=== PATIENT | male | born 1955 | race Caucasian/White ===

== ENCOUNTER 2024-11-29 10:03 | Emergency (ER) | payer MEDICARE, OTHER, SELFPAY ==
--- NOTE | ~2024-11-29 | US_ITS ---
CLINICAL HISTORY: pain swelling, infection vs torsion US Scrotum with Doppler Comparison: None Findings: Right testicle normal size and echotexture, 4.3 x 2.6 x 2.8 cm, corresponds to a volume of 15.9 mL. Left testicle normal size and echotexture, 4.0 x 2.3 x 2.6 cm, corresponds to a volume of 12.6 mL.. Normal color flow and arterial/venous spectral tracing of both testicles. Benign calcifications are noted within the right epididymis. Small cysts are present bilaterally. Epididymides are otherwise unremarkable. No varicoceles. No hydroceles. IMPRESSION: Normal scrotal ultrasound. No evidence of torsion. This document has been electronically signed by: Jose Carlos MD on 11/29/2024 22:48:28
--- NOTE | ~2024-11-29 | CT_ITS ---
CLINICAL HISTORY: right inguinal hernia pain CT of the abdomen and pelvis utilizing intravenous contrast. No comparison. Findings: The liver and gallbladder are unremarkable. There is no hydronephrosis. In the left kidney there is a 4.5 cm cyst with mild peripheral calcification likely incidental. The spleen and pancreas are unremarkable. No abdominal aortic aneurysm. Small hiatal hernia. No diverticulitis. Normal appendix. No bowel obstruction. There is a small fat containing umbilical hernia. There is also a small fat containing ventral hernia in the epigastrium. The bladder is unremarkable. The prostate is enlarged. There are changes of a right inguinal hernia repair. No recurrent hernia is seen. There is atelectasis or scarring in the left lung base. Impression: No inguinal hernias identified. Other findings as above. This document has been electronically signed by: Alejandro Forman MD on 11/29/2024 18:50:00
[2024-11-29 10:10] VITALS: BP 134/89; PULSE 53; RESP 20; TEMP 35.9; O2SAT 98; BMI 27.7
[2024-11-29 10:52] LABS: MANUAL DIFF FLAG NO
[2024-11-29 10:54] LABS: Basophils Absolute Auto 0.1 X10*3/uL (0.0-0.2); Basophils Percent Auto 0.8 % (0-2); Eosinophils Absolute Auto 0.2 X10*3/uL (0.0-0.4); Eosinophils Percent Auto 2.2 % (0-4); Hematocrit 46.6 % (42.0-52.0); Hemoglobin 15.6 g/dl (14.0-18.0); Imm Gran Abs Auto 0.04 X10*3/uL (0.00-0.03); Imm Gran Pct Auto 0.4 % (0.0-0.4); Lymphocytes Absolute Auto 3.6 X10*3/uL (1.2-4.9); Lymphocytes Percent Auto 35.1 % (20-40); Mean Corpuscular HGB Conc 33.5 g/dl (31.0-36.0); Mean Corpuscular Hemoglobin 31.5 pg (27.0-33.0); Mean Platelet Volume 9.3 fL (9.4-12.4); Monocytes Absolute Auto 1.1 X10*3/uL (0.1-1.2); Monocytes Percent Auto 10.4 % (2-11); Neutrophils Absolute Auto 5.3 x10*3/uL (2.0-8.3); Neutrophils Percent Auto 51.1 % (45-73); Platelet Count 254 X10*3/uL (160-400); Red Blood Count 4.96 X10*6/uL (4.60-5.80); Red Cell Distribution Width 13.2 % (11.0-16.0); White Blood Count 10.4 X10*3/uL (4.8-10.8)
[2024-11-29 11:13] LABS: Alanine Aminotransferase 32 U/L (0-40); Albumin Level 4.2 g/dL (3.5-5.0); Alkaline Phosphatase 62 U/L (39-117); Anion Gap 10 (12-20); Aspartate Amino Transferase 26 U/L (5-37); Bilirubin Direct 0.3 mg/dL (0.0-0.5); Bilirubin Total 0.8 mg/dL (0.0-1.0); Blood Urea Nitrogen 15 mg/dL (9-16); Calcium 9.2 mg/dL (8.4-10.2); Carbon Dioxide 25 mmol/L (22-29); Chloride 104 mmol/L (96-108); Creatinine Clr Calc Pharmacy 71.1; Estimated Glomerular Filt Rate > 60; Glucose Random 157 mg/dL (60-115); Lipase 18 U/L (8-78); Potassium 4.6 mmol/L (3.3-5.1); Sodium 134 mmol/L (135-145); Total Protein 7.6 g/dL (6.5-8.0)
--- OUTSIDE RECORDS SUMMARY | 2024-11-29 11:56 | XMS_ITS | Clinical Summary ---
Author Organization [facility] Address [address] [place] [address] Care Team Providers Care Senior Integration Developer Name Role Phone Harpreet Fam Primary Care Provider [phone] Allergies Active Allergy Reactions Criticality Noted Date Comments Penicillins Urticarial Rash 03/02/2008 Medications No known medications Active Problems No known active problems Social History Tobacco Use Types Packs/Day Years Used Date Smoking Tobacco: Passive Smo ke Exposure - Never Smoker Smokeless Tobacco: Never Alcohol Use Standard Drinks/Week Comments Not Asked 0 (1 standard drink = 0.6 oz pur e alcohol) Sex and Gender Information Value Date Recorded Sex Assigned at Not on file Legal Sex Male 5:45 PM EDT Gender Identity Not on file Sexual Orientation Not on file Plan of Treatment Health Maintenance Due Date Last Done Comments Hepatitis C Screening 1955 DTaP/Tdap/Td (1 - Tdap) 1973 Pneumococcal 50+ years (1 of 1 - PCV) 2005 Zoster (Shingrix) (1 of 2) 2005 COVID-19 Vaccine ( - 2023-2 5 season) 2024 Influenza (#1) 2024 RSV (1 - 1-dose 75+ series) 2030 Abdominal Aorta Imaging Discontinued HPV Vaccine Aged Out No longer eligi ble based on patient's age to complete this topic Hep A Aged Out No longer eligi ble based on patient's age to complete this topic Hep B Aged Out No longer eligi ble based on patient's age to complete this topic Hib Aged Out No longer eligi ble based on patient's age to complete this topic Meningococcal ACWY Aged Out No longer eligible based on patient's age to complete this topic Zoster (Zostavax) Discontinued Insurance [employer] [facility] FFS DIRECT CARE (HMO) Care Teams Senior Integration Developer Relationship Specialty Start Date End Date Harpreet Fam [facility] [address] [place] [id number] PCP - General 10/04/07
--- OUTSIDE RECORDS SUMMARY | 2024-11-29 11:56 | XMS_ITS | Encounter Summary ---
Author Organization [facility] Address [address] [place] [address] Care Team Providers Care Air Support Control Officer Name Role Phone Linden Mejia MD Primary Care Provider [phone] Encounter Details Date Type Department Care Team (Late st Contact Info) Description 11/28/2024 Nurse Triage Adult Medicine [address] [phone] Leela Andujar, RN Social History Tobacco Use Types Packs/Day Years Used Date Smoking Tobacco: Never Smokeless Tobacco: Never Alcohol Use Standard Drinks/Week Comments Yes 0 (1 standard drink = 0.6 oz pur e alcohol) Sex and Gender Information Value Date Recorded Sex Assigned at Not on file Gender Identity Not on file Sexual Orientation Not on file documented as of this encounter Progress Notes * Leela Andujar RN - 11/28/2024 11:10 AM EST He was instructed to go to the ER for further evaluation and treatment. He is in agreement with this plan and states he will go to [facility] ER. Reason for Disposition Swollen scrotum or visible bruising of scrotum Answer Assessment - Initial Assessment Questions 1. MECHANISM: How did the injury happen? (Injuries to the penis can occur during sexual intercourse or masturbation; the caller may not be willing to mention this) Pt is reporting swelling to the right side of his scrotum this weekend when moving a 3 ton jonny from his car to the garage. 2. ONSET: When did the injury happen? (e.g., minutes, hours ago) 11/25/24 3. LOCATION: What part of the genitals are injured? Right scrotal swelling 4. APPEARANCE of INJURY: What does the injury look like? He states the right testicle is swollen, 1/2 size larger than the right. On Wednesday it was double tosize. 5. BLEEDING: Is the injury bleeding? If Yes, ask: What have you done to try to stop the bleeding? (e.g., direct pressure) No bleeding/bruising 6. SIZE: For cuts, bruises, or swelling, ask: How large is it? (e.g., inches or centimeters) No cuts. 7. PAIN: Is it painful? If Yes, ask: How bad is the pain? (Scale 0-10; or none, mild, moderate,severe) - NONE (0): No pain. - MILD (1-3): Doesn't interfere with normal activities. - MODERATE (4-7): Interferes with normal activities or awakens from sleep. - SEVERE (8-10): Excruciating pain and patient unable to do normal activities.8. TETANUS: For any breaks in the skin, ask: When was the last tetanus booster? He rates the pain as 3/10 at this time. 9. OTHER SYMPTOMS: Do you have any other symptoms? (e.g., blood from tip of penis, bloody urine) No blood in urine or semen. He is s/p hernia repair 1-2 years ago Protocols used: Genital Injury - Male-A-AH documented in this encounter Plan of Treatment Upcoming Encounters Date Type Department Care Team (Late st Contact Info) Description 12/15/2024 8:00 AM EST Office Visit Adult Medicine [address] [phone] Linden Mejia MD [address] [place] [address] 01/17/2025 8:30 AM EDT Office Visit Adult [address] [phone] Linden Mejia MD [address] [place] [address] documented as of this encounter Visit Diagnoses Not on filedocumented in this encounter Care Teams Air Support Control Officer Relationship Specialty Start Date End Date Linden Mejia MD PCP - General Internal Medicine 08/02/13 documented as of this encounter
--- OUTSIDE RECORDS SUMMARY | 2024-11-29 11:56 | XMS_ITS | Clinical Summary ---
Author Organization [facility] Address [address] [place] [address] Care Team Providers Care Transportation Services Representative Name Role Phone Linden Mejia MD Primary Care Provider [phone] Allergies Active Allergy Reactions Criticality Noted Date Comments Penicillins 08/09/2013 Rash,sob Medications Medication Sig Dispensed Refills Start Date End Date Status lisinopriL (PRINIVIL,ZESTRIL) 10 mg tablet Take 1 Tablet by mouth at bedtime. 07/05/2024 Active amLODIPine (NORVASC) 10 mg tablet Take 1 Tablet by mouth at bedtime. 07/05/2024 Active atorvastatin (LIPITOR) 80 mg tablet Take 1 tablet (80 mg total) by mouth 1 (one) time each day. 07/05/2024 Active levothyroxine (SYNTHROID, LEVOTHROID) 88 mcg tablet Take 1 Tablet by mouth daily. TAKE 1 TABLET BY MOUTH EVERY MORNING BEFORE BREAKFAST AND TAKE 2 TABLETS BY MOUTH EVERY Wednesday05/12/2024 Active meloxicam (MOBIC) 15 mg tablet Take 1 Tablet by mouth daily. 06/22/2023 Active sildenafiL (VIAGRA) 50 mg tablet Take 1/2 tab 30-60 minutes before intercourse. May repeat dose if needed. Do not exceed 100mg in one day. 12/04/2022 Active albuterol HFA (PROAIR HFA ; PROVENTIL HFA ; VENTOLIN HFA) 90 mcg/actuation inhaler Inhale 2 Puffs into the lungs every 6 hours as needed for Cough, Wheezing or Shortness of Breath. 09/04/2021 Active blood-glucose meter kit Test fasting fasting blood sugar once daily 12/11/2020 Active metoprolol succinate (TOPROL-XL) 25 mg 24 hr tablet TAKE 1 TABLET BY MOUTH AT BEDTIME 90 tablet 1 10/11/2024 Active Active Problems Problem Noted Date Diagnosed Date Back pain 09/28/2024 GERD (gastroesophageal reflux disease) Hyperlipidemia 09/28/2024 CKD (chronic kidney disease) stage 2, GFR 60-89 ml/min 07/13/2024 Erectile dysfunction 08/19/2022 Marijuana use 08/19/2022 Overview (09/28/2024): Patient reported 08/19/22 Overweight (BMI 25.0-29.9) 08/19/2022 Type 2 diabetes mellitus with vascular disease 0 12/11/2020 Coronary artery disease 02/03/2016 Overview (09/28/2024): -Cardiac catheterization on 12/13/2015 at [facility] for acute coronary syndrome with ST depressions in the lateral leads-50% lesion in the ostial LAD that was deemed hemodynamically insignificant, moderate diffuse disease in the remainder of the LAD, mild diffuse disease in the left circumflex, 65% proximal RCA disease, moderate diffuse disease in the remaining RCA with no intervention in undertaken because the RCA was severely calcified and tortuous, normal LVEDP, treated with medical management -Per my initial assessment in January 2016, I thought spasm might be a potential cause for his symptoms-started him on calcium channel ben in addition to Toprol, lisinopril, aspirin, and high-dose statin. -His most recent echocardiogram is from 04/03/2020 showing mild, concentric left ventricular hypertrophy with normal LV cavity size and systolic function, normal regional wall motion with ejection fraction of 60 to 65%, normal left ventricular diastolic function, normal RV size and systolic function, normal pulmonary artery systolic pressure, no hemodynamically significant valve disease, dilated aortic root at 4.4 cm and ascending aorta 4.2 cm - Recent exercise nuclear stress test: He exercised for just over 7 minutes to 76% of max predicted heart rate on medical therapy to symptom limitation stopping for fatigue and dyspnea. There is certainly diaphragmatic attenuation artifact that resolves with attenuation correction. However, in addition to that, there is a medium sized, moderately severe region of ischemia at the basal to mid anterior wall extending to the basal anterolateral wall Last Assessment & Plan: It does not sound as though his atypical chest pain symptoms are cardiac in nature at all, therefore, he may certainly have some degree of coronary disease based on positive stress testing but I do not think it is the cause of his symptoms; it may be the cause of his dyspnea on exertion but this only occurs with more than ordinary exertion when the patient goes beyond my limits. I do not feel strongly that cardiac cath would benefit him at this time. I would like to proceed with medical management. Continue current metoprolol, amlodipine, atorvastatin, aspirin. I reviewed and highlighted the differences between stable angina or subclinical coronary artery disease and unstable angina and counseled him on when he should seek emergency medical attention for which he verbalized understanding. Essential hypertension 02/03/2016 Overview (09/28/2024): Last Assessment & Plan: Well-controlled on current meds, continue Thoracic aortic aneurysm without rupture 016 Overview (09/28/2024): CT of the chest without contrast in October 2022 showed stable dilatation of the ascending aorta which measures 4.2 cm. No significant interval change in the remainder of the aortic diameters: proximal arch 3.4 cm, distal arch 2.9 cm, proximal descending 2.9 cm, and distal descending 2.8 cm. Atherosclerotic calcifications in the aorta and great vessels again noted See echocardiogram under coronary artery disease section Last Assessment & Plan: Plan for surveillance imaging every other year at this point since his measurements have been quite stable over the past several years Allergic rhinitis 08/10/2014 Hypothyroidism 08/09/2013 Encounters Date Type Department Care Team Description 11/28/2024 Nurse Triage Adult Medicine [address] [phone] Leela Andujar, LAURA from Last 3 Months Immunizations Name Administration Dates Next Due Influenza Quadravalent, MDCK , 0.5ml, preservative free (Flucelvax) 6mo and older 12/13/2019 Tdap Tetanus diptheria acell ular pertussis (Boostrix; Adacel) 7yo and older 12/13/2019 Surgical History Surgery Date Site/Laterality Comments OTHER SURGICAL HISTORY PROCEDURE: DENIES PREVIOUS SURGERY Medical History Medical History Date Comments Hypothyroidism 08/09/2013 DX:Hypothyroidis m Hypertension DX:Hypertension Hyperlipidemia DX:Hyperlipidemi a Back pain DX:Back pain Other chest pain DX:Other chest pain GERD (gastroesophageal reflu x disease) DX:GERD (gastroesophageal re flux disease) Abdominal discomfort DX:Abdomina l discomfort Family history of colon canc er in father DX:Family history of colon c ancer in father; COMMENT: Diagnosed in his 60's- Abdominal discomfort DX:Abdomina l discomfort Tobacco use DX:Tobacco use Family history of cardiovasc ular disease DX:Family history of cardiov ascular disease Diabetes mellitus type 2, co ntrolled, with complications (CMS/HCC) DX:Diabetes mellitus type 2, controlled, with complications (HCC) Family History Medical History Relation Name Comments CABG Brother Leukemia Father Diagnosed with colon cancer in his 60s Stomach cancer Mother Relation Name Status Comments Brother Alive Father Mother Social History Tobacco Use Types Packs/Day Years Used Date Smoking Tobacco: Never Smokeless Tobacco: Never Alcohol Use Standard Drinks/Week Comments Yes 0 (1 standard drink = 0.6 oz pur e alcohol) Sex and Gender Information Value Date Recorded Sex Assigned at Not on file Gender Identity Not on file Sexual Orientation Not on file Obstetrics History Last Filed Vital Signs Vital Sign Reading Time Taken Comments Blood Pressure 120/74 07/05/2024 9:41 AM EDT Pulse 54 07/05/2024 9:41 AM EDT Temperature - - Respiratory Rate - - Oxygen Saturation - - Inhaled Oxygen Concentration - - Weight 84.3 kg (185 lb 12.8 oz) 07/05/2024 9:41 AM EDT Height 175.3 cm (5' 9 ) 07/05/2024 9:41 AM EDT Body Mass Index 27.44 07/05/2024 9:41 AM EDT Plan of Treatment Upcoming Encounters Date Type Department Care Team (Late st Contact Info) Description 12/15/2024 8:00 AM EST Office Visit Adult Medicine [address] [phone] Linden Mejia MD [address] [place] [phone] 01/17/2025 8:30 AM EDT Office Visit Adult Medicine [address] [phone] Linden Mejia MD [address] [place] [address] Health Maintenance Due Date Last Done Comments COVID-19 Vaccine (#1) 1960 Pneumococcal Vaccine: 65+ Years (1 of 2 - PCV) 1961 Diabetes: Annual Foot Exam 1965 Diabetes: Annual Retina Eye Exam 1965 Zoster Vaccines (1 of 2) 2005 Social Influencers of Health Screening 10/03/2022 Influenza Vaccine (#1) 2024 12/13/2019 Depression Screening 12/10/2024 12/10/2023 Medicare Annual Wellness Visit 12/10/2024 12/10/2023 Diabetes: Annual Urine Albumin-Creatinine Ratio (uACR) 12/22/2024 12/22/2023 Diabetes: Blood Sugar Contro l Test (HGBA1C) 01/04/2025 07/07/2024, 07/07/2024 Falls Risk Assessment 07/05/2025 07/05/2024 Diabetes: Annual GFR (Glomerular Filtration Rate) 07/07/2025 07/07/2024, 07/07/2024 Hypertension/CHF/CAD Annual BMP Blood Test 07/07/2025 07/07/2024, 07/07/2024 Cholesterol Screening (Lipid Panel) 07/07/2029 07/07/2024, 07/07/2024 DTaP,Tdap,and Td Vaccines (2 - Td or Tdap) 12/13/2029 12/13/2019 RSV Immunization Patients 60 + Years Old (1 - 1-dose 75+ series) 2030 Colorectal Cancer Screening: Colonoscopy 01/31/2031 01/31/2021 Hepatitis C Screening Completed 01/08/2017 HIB Vaccines Aged Out No longer eligi ble based on patient's age to complete this topic HPV Vaccines Aged Out No longer eligi ble based on patient's age to complete this topic Hepatitis A Vaccines Aged Out No long er eligible based on patient's age to complete this topic Hepatitis B Vaccines Aged Out No long er eligible based on patient's age to complete this topic IPV Vaccines Aged Out No longer eligi ble based on patient's age to complete this topic MMR Vaccines Aged Out No longer eligi ble based on patient's age to complete this topic Meningococcal ACWY Vaccine Aged Out N o longer eligible based on patient's age to complete this topic RSV Immunization Patients Under 20 months Aged Out No longer eligible b ased on patient's age to complete this topic Varicella Vaccines Aged Out No longer eligible based on patient's age to complete this topic Procedures Procedure Name Priority Date/Time Associated Diagnosis Comments ANNUAL BMP BLOOD TEST Routine 07/07/2024 HEMOGLOBIN A1C Routine 07/07/2024 LIPID PANEL Routine 07/07/2024 FALLS RISK ASSESSMENT Routine 07/05/2024 URINE ALBUMIN CREATININE RATIO Routine 12/22/2023 DEPRESSION SCREENING Routine 12/10/2023 COLONOSCOPY Routine 01/31/2021 HEPATITIS C SCREENING Routine 01/08/2017 from Last 3 Months or Most Recently Relevant to Health Maintenance Results * Annual BMP Blood Test (07/07/2024) Pathologist [facility] Annual BMP Blood Test abstracted Historical Provider MD LEVY VARGAS E * (ABNORMAL) Hemoglobin A1c (07/07/2024) Pathologist [facility] Hemoglobin A1C 6.9(A) 6.5 % Blood Venous blood specimen / Unknown Historical Provider LAB BLOOD ORDERAB LES * Lipid panel (07/07/2024) Pathologist [facility] LDL/HDL Ratio 2 0 - 4 Triglycerides 53 0 - 150 mg/dL Cholesterol 113 0 - 200 mg/dL HDL 48 40 mg/dL LDL Cholesterol 55 0 - 100 mg/dL Blood Venous blood specimen / Unknown Historical Provider LAB BLOOD ORDERAB LES * Falls Risk Assessment (07/05/2024) Pathologist [facility] Falls Risk Assessment abstracted Historical Provider [facility] * Urine Albumin Creatinine Ratio (12/22/2023) [facility] Urine Albumin Creatinine Ratio abstracted Historical Provider [facility] E * Depression Screening (12/10/2023) [facility] Depression Screening abstracted Historical Provider [facility] * Colonoscopy (01/31/2021) [facility] Colonoscopy no interpretation , abstracted Anatomical Region Laterality Modality Other Historical [facility] * Hepatitis C Screening (01/08/2017) [facility] Hepatitis C Screening abstracted Historical Provider [facility] from Last 3 Months or Most Recently Relevant to Health Maintenance Care Teams Transportation Services Representative Relationship Specialty Start Date End Date Linden Mejia MD PCP - General Internal Medicine 08/02/13
[2024-11-29] MEDS: 0.9 % Sodium Chloride 500 ML IV (16:30)
[2024-11-29 17:10] VITALS: BP 114/67; PULSE 45; RESP 16; TEMP 36.7; O2SAT 98
--- NOTE | 2024-11-29 18:06 | ED.GENADULT ---
HPI - General Adult General Chief complaint: General Medical Stated complaint: hernia problem Time Seen by Provider: 11/29/24 15:28 Source: patient Limitations: no limitations History of Present Illness ED Provider: Amberly Mcgee PA-C HPI narrative: 69-year-old male now status post right inguinal hernia repair approximately 4-5 years ago, presents with right-sided groin and testicular swelling x1 week. Patient states his symptoms have progressed, his scrotum has become more uncomfortable and swollen. Pain over right groin and inguinal region with radiation into the scrotum. Denies dysuria, hematuria, fever. Denies abdominal distention, nausea, vomiting, inability to pass flatus, or constipation. Related Data Allergies Allergy/AdvReac Type Severity Reaction Status Date / Time Penicillins Allergy Hives Verified 11/29/24 10:13 Review of Systems Review of Systems: Yes all other systems are reviewed and are negative Constitutional: Constitutional: Denies fatigue and Denies fever(s) Cardiovascular: Cardiovascular: Denies chest pain and Denies dyspnea Respiratory: Respiratory: Denies dyspnea Gastrointestinal: Gastrointestinal: Reports abdominal pain, Denies bloating, Denies constipation, Denies diarrhea, Denies nausea and Denies vomiting Genitourinary: Genitourinary: Denies hematuria, Reports genital pain, Denies dysuria, Denies flank pain and Reports scrotal swelling Endocrine: Endocrine: Denies fatigue PMF Past Medical History Attestation statement: The following information was validated with the patient. Social History Social History Smoked in Last 30 Days: No Use of substances other than those prescribed or required for medical reasons: No Advance Directives: No Advance Directives Information Provided: Yes Do you have a plan to hurt others: No Plan Physical Exam ED Vital Signs: Vital Signs - 24 hr 11/29/24 10:10 11/29/24 17:10 11/29/24 20:34 Temperature 96.6 F L 98.1 F 97.8 F Pulse Rate 53 45 L 49 L Respiratory Rate 20 16 18 Blood Pressure 134/89 114/67 111/66 Pulse Oximetry 98 98 98 Oxygen Delivery Method Room Air Room Air Room Air BMI result Body Mass Index 27.7 Const Other: Alert Orientation/consciousness: patient oriented x3 Resp Effort & Inspection: normal respiratory effort Cardio Other: Normal peripheral perfusion GI Other: Abdomen is soft, nontender nondistended Other: There is tenderness to palpation within right inguinal groin region, no soft swelling noted, no obvious break in the abdominal wall, the scrotum is mildly erythematous and slightly swollen on the right, no penile discharge Skin Other: Warm dry no rash Neuro General: patient oriented x3, gait normal, no focal motor deficits and CN's II-XI intact bilaterally Psych Other: Calm cooperative Medications Administered Discontinued Medications Generic Name Dose Route Start Last Admin Trade Name Freq PRN Reason Stop Dose Admin Diatrizoate Meglum/Diatrizoate Sod 30 ml 11/29/24 18:17 11/29/24 18:17 Diatrizoate Meglumine, Sodium 30 Ml Solution PO 11/29/24 18:18 30 ml ONCE ONE Administration Sodium Chloride 500 mls @ 500 mls/hr 11/29/24 15:39 11/29/24 18:36 Ns IV 11/29/24 16:38 Infused .Q1H ONE Infusion Iohexol 100 ml 11/29/24 18:17 11/29/24 18:17 Iohexol 350 Mg/Ml 100 Ml Infus..Btl IV 11/29/24 18:18 85 ml ONCE ONE Administration Medical Decision Making Medical Decision Making MDM Narrative: 69-year-old male now status post right inguinal hernia repair approximately 4-5 years ago, presents with right-sided groin and testicular swelling x1 week. Patient states his symptoms have progressed, his scrotum has become more uncomfortable and swollen. Pain over right groin and inguinal region with radiation into the scrotum. Denies dysuria, hematuria, fever. Denies abdominal distention, nausea, vomiting, inability to pass flatus, or constipation. Problem: Prior inguinal hernia repair History: Per patient I have considered the following differential diagnoses: Incarcerated hernia, strangulated hernia, bowel obstruction, torsion, epididymitis/orchitis Plan: Patient has no obstructive symptoms at this time, I do not see any overlying skin changes to suggest an incarcerated strangulated hernia, we will obtain a CT scan. Also considering torsion, however the patient has also had symptoms for 1 week and he is well-appearing not asking for pain medication. He could have epididymitis/orchitis, we will add a UA. Screening labs were already completed from triage. I have independently reviewed the following tests: Labs: No leukocytosis, not anemic, no electrolyte abnormality, urine not infected CT abdomen and pelvis:indings: The liver and gallbladder are unremarkable. There is no hydronephrosis. In the left kidney there is a 4.5 cm cyst with mild peripheral calcification likely incidental. The spleen and pancreas are unremarkable. No abdominal aortic aneurysm. Small hiatal hernia. No diverticulitis. Normal appendix. No bowel obstruction. There is a small fat containing umbilical hernia. There is also a small fat containing ventral hernia in the epigastrium. The bladder is unremarkable. The prostate is enlarged. There are changes of a right inguinal hernia repair. No recurrent hernia is seen. There is atelectasis or scarring in the left lung base. Impression: No inguinal hernias identified. Other findings as above. This document has been electronically signed by: Alejandro Forman MD on 11/29/2024 18:50:00 wll add US scrotum given lack of findings Ultrasound scrotal contents: Lab Data 11/29/24 10:35 11/29/24 10:35 Labs: Lab Results 11/29/24 11/29/24 Range/Units 10:35 20:19 WBC 10.4 (4.8-10.8) X10*3/uL RBC 4.96 (4.60-5.80) X10*6/uL Hgb 15.6 (14.0-18.0) g/dl Hct 46.6 (42.0-52.0) % MCV 94.0 (80.0-98.0) fL MCH 31.5 (27.0-33.0) pg MCHC 33.5 (31.0-36.0) g/dl RDW 13.2 (11.0-16.0) % Plt Count 254 (160-400) X10*3/uL MPV 9.3 L (9.4-12.4) fL Immature Gran % (Auto) 0.4 (0.0-0.4) % Neut % (Auto) 51.1 (45-73) % Lymph % (Auto) 35.1 (20-40) % [place] % (Auto) 10.4 (2-11) % Eos % (Auto) 2.2 (0-4) % Baso % (Auto) 0.8 (0-2) % Lymph # (Auto) 3.6 (1.2-4.9) X10*3/uL [place] # (Auto) 1.1 (0.1-1.2) X10*3/uL Eos # (Auto) 0.2 (0.0-0.4) X10*3/uL Baso # (Auto) 0.1 (0.0-0.2) X10*3/uL Abs Immat Gran (auto) 0.04 H (0.00-0.03) X10*3/uL Absolute Neuts (auto) 5.3 (2.0-8.3) x10*3/uL Absolute Nucleated RBC 0.000 (0.0-0.012) X10*3/uL Nucleated RBC % (auto) 0.0 (0.0-0.2) /100WBC Sodium 134 L (135-145) mmol/L Potassium 4.6 (3.3-5.1) mmol/L Chloride 104 (96-108) mmol/L Carbon Dioxide 25 (22-29) mmol/L Anion Gap 10 L (12-20) BUN 15 (9-16) mg/dL Creatinine 1.06 (0.5-1.4) mg/dL Estim Creat Clear Calc 71.1 Estimated GFR > 60 Random Glucose 157 H (60-115) mg/dL Calcium 9.2 (8.4-10.2) mg/dL Total Bilirubin 0.8 (0.0-1.0) mg/dL Direct Bilirubin 0.3 (0.0-0.5) mg/dL AST 26 (5-37) U/L ALT 32 (0-40) U/L Alkaline Phosphatase 62 (39-117) U/L Total Protein 7.6 (6.5-8.0) g/dL Albumin 4.2 (3.5-5.0) g/dL Lipase 18 (8-78) U/L Urine Color Yellow Urine Appearance Clear Urine pH 5.5 (5.0-9.0) Ur Specific [place] >= 1.030 H (1.005-1.025) Urine Protein Negative (Neg-Trace) mg/dL Urine Glucose (UA) Negative (Negative) mg/dL Urine Ketones Negative (Negative) mg/dL Urine Blood Negative (Negative) Urine Nitrite Negative (Negative) Ur Leukocyte Esterase Negative (Negative) Discharge Plan Discharge Clinical Impression: Acute pain in scrotum Patient Disposition: Still a Patient Print Language: Slovenian
[2024-11-29] MEDS: Diatrizoate Meglumine, Sodium 30 ML SOLUTION PO (18:17)
[2024-11-29] MEDS: iohexoL 350 MG/ML 100 ML INFUS..BTL IV (18:17)
--- NOTE | 2024-11-29 19:37 | PC.NURSE ---
pt off unit to U/S
[2024-11-29 20:27] LABS: Appearance Urine Clear; Color Urine Yellow; Glucose Urine UA Negative (Negative); Leukocyte Esterase Urine Negative (Negative); Nitrite Urine Negative (Negative); PH 5.5 (5.0-9.0); Specific Gravity - Urine >= 1.030 (1.005-1.025); Urine Blood Negative (Negative); Urine Ketones Negative (Negative); Urine Protein Negative (Neg-Trace)
[2024-11-29 20:34] VITALS: BP 111/66; PULSE 49; RESP 18; TEMP 36.6; O2SAT 98
[2024-11-29 22:39] VITALS: BP 130/73; PULSE 49; RESP 16; TEMP 36.4; O2SAT 98
[2024-11-29 23:26] VITALS: BP 130/73; PULSE 49; RESP 16; TEMP 36.4; O2SAT 98
== END 2024-11-29 23:26 | disposition home or self-care (01) ==
PROVIDERS: Physician Assistant Medical; Emergency Provider Emergency Medicine; PCP Internal Medicine
DX: N50.82 Scrotal pain (principal); N50.89 Other specified disorders of the male genital organs
CPT/HCPCS: 36415; 74177; 76870; 80048; 80076; 81003; 83690; 85025; 93975; 96365; 96366; 99284; Q9967

== ENCOUNTER → 2024-11-29 15:39 | Outpatient (BNV) | payer MEDICARE, OTHER, SELFPAY | PROVIDERS: Emergency Provider Emergency Medicine; PCP Internal Medicine; Visit Provider Radiology Diagnostic Radiology | DX: N50.89 Other specified disorders of the male genital organs (principal); N50.3 Cyst of epididymis | CPT/HCPCS: 76870; 93976 ==